=== PATIENT | male | born 1950 | race Caucasian/White ===

== ENCOUNTER 2017-04-14 21:33 | Emergency (ER) | payer MEDICARE, BC, OTHER, SELFPAY ==
[2017-04-14 21:42] VITALS: BP 156/73; PULSE 111; RESP 20; TEMP 36.9; O2SAT 95; BMI 69.0
--- NOTE | 2017-04-14 22:27 | HMH.EDGENADL ---
ED Disposition Clinical Impression: Allergic drug rash due to sulfonamide Disposition: Home, Self-Care Condition on Discharge: Good Additional Instructions: Stop taking Bactrim (trimethoprim/sulfamethoxazole) Do not ever take sulfa drugs or sulfa antibiotics in the future. Follow-up with your primary care physician next week. Tylenol if any fever or joint pains. Prescriptions: hydrOXYzine pamoate [Hydroxyzine Pamoate] 50 mg PO Q6H 5 Days #20 cap predniSONE [Prednisone 20mg Tab] 20 mg PO BID #10 tab - Critical Care Critical Care Time: No Attestation: On , the high probability of a clinically significant, sudden or life threatening deterioration of the following system(s) required my full and direct attention, intervention and personal management. The time I documented below is in addition to time spent performing reported procedures but includes the following listed in this critical care notation. Medical Decision Making Vital Signs: 04/14/17 21:42 Temperature 98.4 F Temperature Source Oral Pulse Rate [Right Radial] 111 H Respiratory Rate 20 Blood Pressure [Right Arm] 156/73 Blood Pressure Mean [Right Arm] 100 Blood Pressure Source [Right Arm] Automatic Cuff Blood Pressure Position [Right Arm] Supine 02 Sat by Pulse Oximetry 95 Oxygen Delivery Method Room Air Orders (Tests/Meds): ED MEDICATIONS Discontinued Medications Generic Name Dose Route Start Last Admin Trade Name Grzegorzq PRN Reason Stop Dose Admin Diphenhydramine HCl 50 mg 04/14/17 21:51 04/14/17 21:53 Benadryl 50mg/1ml Vial IV 04/14/17 21:52 50 mg ONCE ONE Administration Famotidine 20 mg 04/14/17 21:51 04/14/17 21:55 Pepcid 20mg/2ml Vial IV 04/14/17 21:52 20 mg ONCE ONE Administration Hydroxyzine Pamoate 50 mg 04/14/17 22:45 Vistaril 25mg Capsule PO 04/14/17 22:46 ONCE ONE Methylprednisolone Sodium Succinate 125 mg 04/14/17 21:51 04/14/17 21:53 Solu-Medrol 125mg/2ml Vial IV 04/14/17 21:52 125 mg ONCE ONE Administration - Lester Inquiry Pt receiving controlled substance: No General Adult HPI - General Chief complaint: Allergic Reaction Stated complaint: Rash , Possible reaction of medication Mode of Arrival: Ambulatory Limitations: No Limitations Description of Symptoms (Recalled from ER Triage Doc. by RN): hives itching, SOB - History of Present Illness HPI narrative: The patient complains of a pruritic rash which he believes to be due to medication. He was started Bactrim 6 days ago for prostate condition. His rash began 24 hours ago. He has taken Benadryl today. No fever. No trouble breathing. No trouble swallowing. - Related Data Previous Rx's Medication Instructions Recorded hydrOXYzine pamoate [Hydroxyzine 50 mg PO Q6H 5 Days #20 cap 04/14/17 Pamoate] predniSONE [Prednisone 20mg 20 mg PO BID #10 tab 04/14/17 Tab] Allergies Allergy/AdvReac Type Severity Reaction Status Date / Time No Known Allergies Allergy Verified 04/14/17 21:41 [facility] History I have reviewed the patient's past medical history: Yes Medical History: Reports:: Diabetes Mellitus Type 2 Denies:: Cancer, Diabetes Mellitus Type 1, MRSA Laterality Cases: Left: Partial Knee Replacement, Right: Carpal Tunnel Release Amputation: No Fractures: No - *Social History Alcohol Intake: never - Psychiatric History Expresses thoughts of harming self/others: None Suicide Plan Description: No Plan ROS Obtained: Yes All systems reviewed & no additional complaints - Constitutional Constitutional: Denies fever(s) - Respiratory Respiratory: No dyspnea - Integumentary/Breasts Skin/Breast: Reports rash Physical Exam - General General appearance: alert, in no apparent distress - Head Head exam: atraumatic, normocephalic, normal inspection - Eye Eye exam: Present: normal appearance, PERRL, EOMI - ENT ENT exam: Present: normal exam, normal oropharynx, muco
[2017-04-14 23:53] VITALS: BP 134/80; PULSE 102; RESP 12; TEMP 37; O2SAT 96
== END 2017-04-14 23:56 | disposition home or self-care (01) ==
PROVIDERS: Emergency Provider Emergency Medicine; Family Provider Internal Medicine
DX: L27.0 Generalized skin eruption due to drugs and medicaments taken internally (principal); E11.9 Type 2 diabetes mellitus without complications; Z96.652 Presence of left artificial knee joint
CPT/HCPCS: 96374; 96375; 99281

== ENCOUNTER 2020-05-02 09:49 | Emergency (ER) | payer MEDICARE, BC, OTHER, SELFPAY ==
[2020-05-02 10:00] VITALS: BP 123/54; PULSE 65; RESP 20; TEMP 36.7; O2SAT 100; BMI 26.1
--- NOTE | 2020-05-02 10:22 | HMH.EDUTC ---
[facility] [place] Disposition Clinical Impression: Laceration Disposition: Home, Self-Care Condition on Discharge: Good Instructions: DI for Laceration Repair-Skin Glue Additional Instructions: Keep area clean and dry Do not pick off glue allow it to wear off Return if needed Straight to ER if any life threatening symptoms Referrals: Alfie De Paz [Primary Care Provider] - As needed Time of Disposition: 10:42 Medical Decision Making - Lester Inquiry Pt receiving controlled substance: No Lester was queried for this patient: No Vital Signs: 05/02/20 10:00 Temperature 98.0 F Temperature Source Temporal Artery Scan Pulse Rate [Right Brachial] 65 Respiratory Rate 20 Blood Pressure [Left Arm] 123/54 L Blood Pressure Mean [Left Arm] 77 Blood Pressure Source [Left Arm] Automatic Cuff Blood Pressure Position [Left Arm] Sitting 02 Sat by Pulse Oximetry 100 Oxygen Delivery Method Room Air [facility] [place] HPI - General Stated complaint: cut finger on rght hand Time Seen by Provider: 05/02/20 10:22 Mode of Arrival: Ambulatory Source of Information: Patient Limitations: No Limitations Description of Symptoms (Recalled from Triage Doc. by RN): PATIENT C/O LACERATION TO RIGHT INDEX FINGER. STATES HE CUT IT USING A TAPE MEASURE LAST NIGHT. HE IS UP TO DATE ON TDAP HEENT Symptoms (Recalled from RN notes): No Resp Symptoms (Recalled from RN notes): No Skin Symptoms (Recalled from RN notes): Yes MS Symptoms (Recalled from RN notes): No Functional Status (Recalled from RN notes): WNL - History of Present Illness Provider Complaint: Patient states that he was using a tape measure when it slipped and caused small cut to the pad of his index finger on his right hand States that he immediatly cleaned it and put a bandaid on it and got the bleeding stopped but someone told him he may need to get it closed States that last Tetanus was 2 yrs ago - Related Data Home Medications Medication Instructions Recorded Confirmed Atorvastatin Calcium [Atorvastatin 10 mg PO DAILY 04/14/17 10/06/18 10mg Tab] Colchicine 1 tab PO DAILY 04/14/17 10/06/18 Febuxostat [Uloric 40mg Tab] 40 mg PO DAILY 04/14/17 10/06/18 Metformin HCl [Glucophage 500mg 500 mg PO DAILY 04/14/17 10/06/18 Tablet] Omeprazole [Omeprazole 40mg 40 mg PO DAILY 04/14/17 10/06/18 Capsule] atenoloL [Atenolol 50mg Tab] 1 tab PO DAILY 04/14/17 10/06/18 Albuterol Sulfate [Proair Hfa 2 puffs IH NEEDED PRN 10/06/18 10/06/18 90mcg/puff Inh] Carbidopa/Levodopa 1 tab PO TID 10/06/18 10/06/18 [Carbidopa/Levodopa 25/100mg Tablet] Cetirizine HCl [Zyrtec] 10 mg PO DAILY 10/06/18 10/06/18 Fluticasone Propionate [Flovent 2 inh PO BID 10/06/18 10/06/18 Hfa 110mcg Inhaler] Indomethacin 25 mg PO NEEDED PRN 10/06/18 10/06/18 Methenamine Hippurate 500 mg PO BID 10/06/18 10/06/18 Ropinirole HCl 1 mg PO TID 10/06/18 10/06/18 Tamsulosin HCl 0.4 mg PO DAILY 10/06/18 10/06/18 hydroCHLOROthiazide [HCTZ 25mg 25 mg PO DAILY 10/06/18 10/06/18 tab] Previous Rx's Medication Instructions Recorded cephALEXin [Keflex 500mg Cap] 500 mg PO TID 10 Days #30 cap 10/06/18 Allergies Allergy/AdvReac Type Severity Reaction Status Date / Time allopurinol Allergy Verified 12/29/17 13:17 Sulfa (Sulfonamide Allergy Verified 12/29/17 13:17 Antibiotics) - Worker's Comp Is this a Worker's Comp case?: No [facility] History - Hepatitis A Screen Drug use history?: No High risk sexual behaviors?: No History of sexually transmitted infection?: No Currently employed?: No Childcare worker?: No Do you have indoor plumbing?: Yes Do you have electricity?: Yes Attestation statement:: This patient has been screened for Hepatitis A risk factors. I have reviewed the patient's past medical history: Yes Medical History: Reports:: Asthma, Cancer (prostate cancer), Diabetes Mellitus Type 2, Gastroesophageal Reflux Disease(GERD), Hypertension Denies:: Diabetes Mellitus Type
[2020-05-02 10:43] VITALS: BP 123/54; PULSE 65; RESP 20; TEMP 36.7; O2SAT 100
== END 2020-05-02 10:50 | disposition home or self-care (01) ==
PROVIDERS: Emergency Provider Nurse Practitioner; PCP Internal Medicine
DX: S61.210A Laceration without foreign body of right index finger without damage to nail, initial encounter (principal); W26.8XXA Contact with other sharp object(s), not elsewhere classified, initial encounter; Y92.019 Unspecified place in single-family (private) house as the place of occurrence of the external cause
CPT/HCPCS: 12001; G0463; 99202

== ENCOUNTER 2020-05-30 19:48 | Emergency (ER) | payer MEDICARE, BC, OTHER, SELFPAY ==
[2020-05-30 20:10] VITALS: BP 152/76; PULSE 76; RESP 20; TEMP 36.7; O2SAT 97; BMI 28.2
--- NOTE | 2020-05-30 20:33 | CT_ITS ---
PROCEDURE: CT HEAD/BRAIN WO CON CLINICAL INDICATION: altered mental status Altered mental status, altered level of consciousness, confusion, disorientation COMPARISON: No exams were available for comparison TECHNIQUE: Axial images obtained. All CT scans at the facility use one or more dose reduction, viz: automated exposure control, ma/kV adjustment per patient size (including targeted exams where dose is matched to indication, i.e. head), or iterative reconstruction technique. FINDINGS: No midline shift, mass effect, intracranial hemorrhage, hydrocephalus, or extra-axial fluid collection is evident. Nonspecific decreased attenuation periventricular white matter which may be related to is chronic ischemic gliotic changes from microvascular disease. The calvarium has an unremarkable appearance. No mastoid effusion. Left maxillary retention cyst. IMPRESSION: No acute intracranial finding Dictated by: Prabhjot Landry MD 05/31/2020 08:59 Prabhjot Landry MD in [place] 05/31/2020 08:59
--- NOTE | 2020-05-30 20:52 | HMH.EDAMS ---
ED Disposition Clinical Impression: TIA (transient ischemic attack) Disposition: Home, Self-Care Condition on Discharge: Good Instructions: DI for Transient Ischemic Attack Additional Instructions: return if needed and call pcp for follow up Referrals: Alfie De Paz [Primary Care Provider] - - Critical Care Critical Care Time: No Attestation: On 05/30/20, the high probability of a clinically significant, sudden or life threatening deterioration of the following system(s) required my full and direct attention, intervention and personal management. The time I documented below is in addition to time spent performing reported procedures but includes the following listed in this critical care notation. Medical Decision Making - Medical Records Medical records reviewed: Yes: I reviewed the patient's medical records. - Lester Inquiry Pt receiving controlled substance: No Vital Signs: 05/30/20 20:10 Temperature 98.0 F Temperature Source Oral Pulse Rate [Right] 76 Respiratory Rate 20 Blood Pressure [Right Arm] 152/76 H Blood Pressure Mean [Right Arm] 101 Blood Pressure Source [Right Arm] Automatic Cuff 02 Sat by Pulse Oximetry 97 Oxygen Delivery Method Room Air - Lab Data Lab results reviewed: Yes: I reviewed the patient's lab results. Lab Results 05/30/20 20:50: WBC 5.3, RBC 4.49 L, Hgb 13.4 L, Hct 42.8, MCV 95.3 H, MCH 29.9, MCHC 31.4 L, RDW 14.3, Plt Count 187, MPV 8.3, Neut % (Auto) 57.2, Lymph % (Auto) 33.5, [place] % (Auto) 6.3, Eos % (Auto) 2.1, Baso % (Auto) 0.8, Neut # (Auto) 3.0, Lymph # (Auto) 1.8, [place] # (Auto) 0.3, Eos # (Auto) 0.1, Baso # (Auto) 0.0, ESR 3 05/30/20 20:50: Sodium 139, Potassium 3.7, Chloride 108 H, Carbon Dioxide 27, Anion Gap 7.7, BUN 17, Creatinine 0.80, Estimated Creat Clear 76, Estimated GFR 95, Est GFR ( Amer) 115, Glucose 93, Calcium 8.8, Total Bilirubin 1.4 H, AST 33, ALT 21, Alkaline Phosphatase 69, C-Reactive Protein 0.4, Total Protein 6.2 L, Albumin 3.9, Globulin 2.3, Albumin/Globulin Ratio 1.7 05/30/20 20:50: Procalcitonin 0.052 05/30/20 20:50: Troponin I < 0.01 05/30/20 22:26: Urine Color Yellow, Urine Appearance Clear, Urine pH 5.5, Ur Specific [place] >= 1.030, Urine Protein Negative, Urine Glucose (UA) Negative, Urine Ketones Negative, Urine Blood Negative, Urine Nitrate Negative, Urine Bilirubin Negative, Urine Urobilinogen 1.0, Ur Leukocyte Esterase Negative, Urine RBC None, Urine WBC None, Ur Squamous Epith Cells None, Urine Bacteria None Result diagrams: 05/30/20 20:50 05/30/20 20:50 Orders (Tests/Meds): ED MEDICATIONS Generic Name Dose Route Start Last Admin Trade Name Freq PRN Reason Stop Dose Admin Sodium Chloride 1,000 mls @ 999 mls/hr 05/30/20 22:00 05/30/20 21:48 Sod Chlor 0.9% 1000ml Bag IV 05/30/20 23:00 999 mls/hr .Q1H1M MEG Administration ORDERS Category Date Time Status CT head/brain wo con Stat Cat Scan 05/30/20 20:33 Taken Troponin I Q3H Lab 05/31/20 00:15 Ordered Troponin I Q3H Lab 05/31/20 03:15 Ordered - CT Data CT Scan: Head Time Received: 23:[address] Reviewed: Yes: I have viewed the radiologist's interpretation Preliminary Findings: Normal/NAD Medical Decision Narrative: possible tia as pt is back to baseline - asked pt to call pcp and neurologist and consider asa 81 mg Altered Mental Status HPI - General Chief Complaint: Altered Mental Status Stated Complaint: SHAKING BAD. , CONFUSSION Time Seen by Provider: 05/30/20 20:53 Mode of Arrival: Family Vehicle Source of Information: Patient, Relative, Medical Record Limitations: No Limitations Description of Symptoms (Recalled from ER Triage Doc. by RN): Pt is A&Ox3 and has answered questioned correctly. 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 Pt also c/o shakiness that has been going on for 2yrs. He states he has been dx with passive tremors but the shakes seems worse to him. He also c/o of drooling at times
[2020-05-30 21:04] LABS: Basophils % 0.8 % (0.1-2.0); Eosinophils # 0.1 K/mm3 (0.0-0.4); Eosinophils % 2.1 % (0.1-12.0); Hematocrit 42.8 % (42.0-52.0); Hemoglobin 13.4 g/dL (14.1-18.0); Lymphocytes # 1.8 K/mm3 (0.7-4.5); Lymphocytes % 33.5 % (10-50); Mean Corpuscular HGB Conc 31.4 g/dL (31.8-35.4); Mean Corpuscular Hemoglobin 29.9 pg (27.0-31.2); Mean Corpuscular Volume 95.3 fl (80-94); Mean Platelet Volume 8.3 fl (7.4-10.4); Monocytes # 0.3 K/mm3 (0.1-1.0); Monocytes % 6.3 % (1.7-9.3); Neutrophils % 57.2 % (37.0-80.0); Platelet Count 187 K/mm3 (142-424); Red Blood Count 4.49 M/mm3 (4.60-6.20); Red Cell Distribution Width 14.3 % (11.5-17.5); White Blood Count 5.3 K/mm3 (4.8-10.8)
[2020-05-30 21:06] LABS: Chloride 108 mmol/L (98-107); Potassium 3.7 mmoL/L (3.5-5.1); Sodium 139 mmol/L (136-145)
[2020-05-30 21:09] LABS: Albumin Level 3.9 g/dl (3.5-5.0); Albumin/Globulin Ratio 1.7 (1.1-1.8); Anion Gap 7.7 mEq/L (5-15); Carbon Dioxide 27 mmol/L (22.0-30.0); Globulin 2.3 g/dL (1.3-3.2); Total Protein,Serum 6.2 g/dl (6.3-8.2)
[2020-05-30 21:15] LABS: C-Reactive Protein 0.4 mg/L (0-4)
[2020-05-30 21:19] LABS: Alanine Aminotransferase 21 U/L (12-78); Alkaline Phosphatase 69 U/L (38-126); Aspartate Amino Transferase 33 U/L (17-59); Bilirubin,Total 1.4 mg/dl (0.2-1.3); Blood Urea Nitrogen 17 mg/dl (9-20); Calcium 8.8 mg/dl (8.4-10.2); Creatinine Clearance Estimated 76 mL/min (50-200); Estimated Glomerular Filt Rate 95 ml/min (>60); GFR (African American) 115 ML/MIN (>60); Glucose 93 mg/dl (74-100)
[2020-05-30 21:32] LABS: Erythrocyte Sedimentation Rate 3 mm/hr (0-20)
[2020-05-30 21:45] LABS: Procalcitonin 0.052 ng/mL (0.0-2.0)
[2020-05-30 22:08] LABS: Troponin I < 0.01 ng/ml (0.00-0.034)
[2020-05-30 22:36] LABS: Microscopic, Urine URINE MICROSCOPIC (MICROSCOPIC)
[2020-05-30 22:39] LABS: Appearance,Urine CLEAR (Clear); Blood, Urine Negative (Negative); Color,Urine YELLOW (Yellow); Glucose,Urine (UA) Negative (Negative); Ketones,Urine Negative (Negative); Leukocyte Esterase,Urine Negative (Negative); Nitrate,Urine Negative (Negative); PH,Urine 5.5 (5.0-8.5); Protein,Urine Negative (Negative); Specific Gravity, Urine >= 1.030 (1.005-1.030)
[2020-05-30 22:58] LABS: Bilirubin,Urine Negative (Negative)
[2020-05-30 23:09] VITALS: BP 150/82; PULSE 71; RESP 18; TEMP 36.9; O2SAT 99
== END 2020-05-30 23:20 | disposition home or self-care (01) ==
PROVIDERS: Emergency Provider Emergency Medicine; PCP Internal Medicine
DX: G45.8 Other transient cerebral ischemic attacks and related syndromes (principal); I10 Essential (primary) hypertension; K21.9 Gastro-esophageal reflux disease without esophagitis; E11.9 Type 2 diabetes mellitus without complications; Z85.46 Personal history of malignant neoplasm of prostate; Z79.899 Other long term (current) drug therapy
CPT/HCPCS: 70450; 80053; 81001; 84145; 84484; 85025; 85651; 86140; 96365; 99283

== ENCOUNTER 2020-10-27 19:26 | Emergency (ER) | payer MEDICARE, BC, OTHER, SELFPAY ==
[2020-10-27] VITALS (8 sets, daily range): BP systolic 108–152; BP diastolic 61–111; PULSE 76–85; RESP 22; TEMP 37.1; O2SAT 94–100; BMI 26.6; BMI 22.8
--- NOTE | 2020-10-27 19:38 | XR_ITS ---
PROCEDURE INFORMATION: Exam: XR Chest Exam date and time: 10/27/2020 7:38 PM Age: 70 years old Clinical indication: Other: Possible CVA per er staff TECHNIQUE: Imaging protocol: XR of the chest. Views: 1 view. COMPARISON: No relevant prior studies available. FINDINGS: Lungs: The lungs are hyperinflated, consistent with underlying small airways disease. Pleural spaces: Unremarkable. No pleural effusion. No pneumothorax. Heart/Mediastinum: Unremarkable. No cardiomegaly. Bones/joints: Unremarkable. IMPRESSION: The lungs are hyperinflated, consistent with underlying small airways disease.
--- NOTE | 2020-10-27 19:38 | CT_ITS ---
PROCEDURE INFORMATION: Exam: CT Head Without Contrast Exam date and time: 10/27/2020 7:38 PM Age: 70 years old Clinical indication: Speech disturbance; Additional info: Word salad, unsteady gait occurred between TECHNIQUE: Imaging protocol: Computed tomography of the head without contrast. 3D rendering (Not supervised by radiologist): MIP and/or 3D reconstructed images were created by the technologist. Radiation optimization: All CT scans at this facility use at least one of these dose optimization techniques: automated exposure control; mA and/or kV adjustment per patient size (includes targeted exams where dose is matched to clinical indication); or iterative reconstruction. Other technique: STROKE PROTOCOL was implemented. COMPARISON: CT HEAD/BRAIN WO CON 05/30/2020 9:49 PM FINDINGS: Brain: No hemorrhage, mass effect or midline shift. Age-related atrophy and chronic white matter ischemic changes, with no evidence of an acute intracranial abnormality. Cerebral ventricles: No ventriculomegaly. Paranasal sinuses: Mucous retention cyst left maxillary sinus. Mastoid air cells: Visualized mastoid air cells are well aerated. Bones/joints: No acute fracture. Soft tissues: No acute changes IMPRESSION: 1. No hemorrhage, mass effect or midline shift. 2. Age-related atrophy and chronic white matter ischemic changes, with no evidence of an acute intracranial abnormality. ASSESSMENT: ASPECTS ([place] Stroke Program Early CT Score) is 10.
--- NOTE | 2020-10-27 19:56 | HMH.EDAMS ---
ED Disposition Clinical Impression: AMS (altered mental status) Qualifiers: Altered mental status type: unspecified Qualified Code(s): R41.82 - Altered mental status, unspecified Adverse drug reaction Qualifiers: Encounter type: initial encounter Qualified Code(s): T50.905A - Adverse effect of unspecified drugs, medicaments and biological substances, initial encounter Disposition: Xfer Short-Term Hosp Condition on Discharge: Serious Referrals: Alfie De Paz [Primary Care Provider] - - Critical Care Critical Care Time: No Attestation: On 10/27/20, the high probability of a clinically significant, sudden or life threatening deterioration of the following system(s) required my full and direct attention, intervention and personal management. The time I documented below is in addition to time spent performing reported procedures but includes the following listed in this critical care notation. Medical Decision Making - Medical Records Medical records reviewed: Yes: I reviewed the patient's medical records. - Lester Inquiry Pt receiving controlled substance: No Vital Signs: 10/27/20 19:26 10/27/20 20:33 10/27/20 21:15 Temperature 98.7 F Temperature Source Oral Pulse Rate 83 76 Pulse Rate [Right] 83 Respiratory Rate 22 Blood Pressure 152/111 H 108/89 L Blood Pressure [Right Arm] 126/66 Blood Pressure Mean 123 95 Blood Pressure Mean [Right Arm] 86 02 Sat by Pulse Oximetry 99 98 99 10/27/20 21:31 10/27/20 22:00 10/27/20 22:18 Temperature Temperature Source Pulse Rate 79 81 85 Pulse Rate [Right] Respiratory Rate Blood Pressure 112/61 132/81 122/71 Blood Pressure [Right Arm] Blood Pressure Mean 82 90 83 Blood Pressure Mean [Right Arm] 02 Sat by Pulse Oximetry 99 100 97 10/27/20 22:31 10/27/20 23:30 10/28/20 00:21 Temperature Temperature Source Pulse Rate 85 77 88 Pulse Rate [Right] Respiratory Rate Blood Pressure 121/64 109/64 L 133/89 Blood Pressure [Right Arm] Blood Pressure Mean 84 75 99 Blood Pressure Mean [Right Arm] 02 Sat by Pulse Oximetry 94 L 98 9 L - Lab Data Lab results reviewed: Yes: I reviewed the patient's lab results. Lab Results 10/27/20 19:44: WBC 7.2, RBC 4.85, Hgb 15.0, Hct 45.7, MCV 94.1 H, MCH 31.0, MCHC 32.9, RDW 14.3, Plt Count 230, MPV 8.8, Neut % (Auto) 50.9, Lymph % (Auto) 38.9, [place] % (Auto) 7.6, Eos % (Auto) 1.6, Baso % (Auto) 1.1, Neut # (Auto) 3.6, Lymph # (Auto) 2.8, [place] # (Auto) 0.5, Eos # (Auto) 0.1, Baso # (Auto) 0.1 10/27/20 19:44: Sodium 137, Potassium 3.3 L, Chloride 98, Carbon Dioxide 28, Anion Gap 14.3, BUN 20, Creatinine 0.70, Estimated Creat Clear 66, Estimated GFR 111, Est GFR ( Amer) 134, Glucose 101 H, Calcium 9.8, Total Bilirubin 2.7 H, AST 35, ALT 7 L, Alkaline Phosphatase 94, Troponin I < 0.01, Total Protein 7.3, Albumin 4.5, Globulin 2.8, Albumin/Globulin Ratio 1.6, TSH 0.54, Thyroxine (T4) 9.6 10/27/20 19:44: Salicylates < 1.0 L, Acetaminophen < 10 L 10/27/20 20:04: POC Glucose 186 H 10/27/20 21:10: Urine Color Brown, Urine Appearance Sl cloudy, Urine pH 6.0, Ur Specific [place] 1.025, Urine Protein Trace, Urine Glucose (UA) Negative, Urine Ketones 1+, Urine Blood Negative, Urine Nitrate Negative, Urine Bilirubin Negative, Urine Urobilinogen 1.0, Ur Leukocyte Esterase Negative, Urine RBC None, Urine WBC 3-5, Ur Squamous Epith Cells 3-5, Urine Bacteria None 10/27/20 21:10: Urine Opiates Screen Negative, Urine Methadone Screen Negative, Ur Barbituates Screen Negative, Ur Phencyclidine Scrn Negative, Ur Amphetamines Screen Negative, U Benzodiazepines Scrn Negative, Urine Cocaine Screen Negative, U Marijuana (THC) Screen Negative 10/27/20 22:15: Ammonia < 9 L 10/27/20 23:00: Troponin I < 0.01 10/27/20 23:55: SARS-CoV-2 (PCR) Not detected, Influenza A Untype (PCR) Not detected, Influenza Type B (PCR) Not detected 10/28/20 01:42: Troponin I < 0.01 Result diagrams: 10/27/20 19:44 10/27/20 1
[2020-10-27 20:07] LABS: Alanine Aminotransferase 7 U/L (12-78); Albumin Level 4.5 g/dl (3.5-5.0); Albumin/Globulin Ratio 1.6 (1.1-1.8); Alkaline Phosphatase 94 U/L (38-126); Anion Gap 14.3 mEq/L (5-15); Aspartate Amino Transferase 35 U/L (17-59); Bilirubin,Total 2.7 mg/dl (0.2-1.3); Blood Urea Nitrogen 20 mg/dl (9-20); Calcium 9.8 mg/dl (8.4-10.2); Carbon Dioxide 28 mmol/L (22.0-30.0); Chloride 98 mmol/L (98-107); Creatinine Clearance Estimated 66 mL/min (50-200); Estimated Glomerular Filt Rate 111 ml/min (>60); GFR (African American) 134 ML/MIN (>60); Globulin 2.8 g/dL (1.3-3.2); Glucose 101 mg/dl (74-100); Potassium 3.3 mmoL/L (3.5-5.1); Sodium 137 mmol/L (136-145); Total Protein,Serum 7.3 g/dl (6.3-8.2)
[2020-10-27 20:19] LABS: POC Glucose,Bedside 186 (70-110)
[2020-10-27 20:20] LABS: Troponin I < 0.01 ng/ml (0.00-0.034)
[2020-10-27 20:21] LABS: Basophils # 0.1 K/mm3 (0-0.2); Basophils % 1.1 % (0.1-2.0); Eosinophils # 0.1 K/mm3 (0.0-0.4); Eosinophils % 1.6 % (0.1-12.0); Hematocrit 45.7 % (42.0-52.0); Lymphocytes # 2.8 K/mm3 (0.7-4.5); Lymphocytes % 38.9 % (10-50); Mean Corpuscular HGB Conc 32.9 g/dL (31.8-35.4); Mean Corpuscular Volume 94.1 fl (80-94); Mean Platelet Volume 8.8 fl (7.4-10.4); Monocytes # 0.5 K/mm3 (0.1-1.0); Monocytes % 7.6 % (1.7-9.3); Neutrophils # 3.6 K/mm3 (1.8-7.8); Neutrophils % 50.9 % (37.0-80.0); Platelet Count 230 K/mm3 (142-424); Red Blood Count 4.85 M/mm3 (4.60-6.20); Red Cell Distribution Width 14.3 % (11.5-17.5); White Blood Count 7.2 K/mm3 (4.8-10.8)
[2020-10-27 20:24] LABS: T4 (Thyroxine) 9.6 ug/dl (5.53-11.0)
--- NOTE | 2020-10-27 20:30 | PC.NURSE ---
update given to and friend. 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 informed the registration staff to remind of no visitor policy
[2020-10-27 20:38] LABS: Thyroid Stimulating Hormone 0.54 uIU/mL (0.465-4.68)
[2020-10-27 21:30] LABS: Microscopic, Urine URINE MICROSCOPIC (MICROSCOPIC)
--- NOTE | 2020-10-27 21:30 | PC.NURSE ---
pt resting at this time. no acute distress. vss. emv 14. able to articulate well at this time.
[2020-10-27 21:33] LABS: Appearance,Urine SL CLOUDY (Clear); Bilirubin,Urine Negative (Negative); Blood, Urine Negative (Negative); Color,Urine BROWN (Yellow); Glucose,Urine (UA) Negative (Negative); Ketones,Urine 1+ (Negative); Leukocyte Esterase,Urine Negative (Negative); Nitrate,Urine Negative (Negative); Protein,Urine TRACE (Negative); Specific Gravity, Urine 1.025 (1.005-1.030)
[2020-10-27 21:43] LABS: Acetaminophen < 10 ug/ml (10-30); Salicylate < 1.0 mg/dL (2.0-20.0)
[2020-10-27 21:45] LABS: Opiate Screen,Urine Negative ng/ml (<300)
[2020-10-27 21:46] LABS: Phencyclidine Screen,Urine Negative ng/ml (<25)
[2020-10-27 21:49] LABS: Amphetamine/Metha Screen,Urine Negative ng/ml (<1000); Barbiturates Screen,Urine Negative ng/ml (<200)
[2020-10-27 21:50] LABS: Benzodiazepines Screen,Urine Negative ng/ml (<200); Cannabinoid Screen,Urine Negative ng/ml (<50)
[2020-10-27 21:51] LABS: Cocaine Screen,Urine Negative ng/ml (<300)
[2020-10-27 21:52] LABS: Methadone Screen,Urine Negative ng/ml (<300)
[2020-10-27 22:38] LABS: Ammonia < 9 umol/L (9-30)
--- NOTE | 2020-10-27 22:53 | PC.NURSE ---
family updated on current status. pt headed to take someone home and will return.
--- NOTE | 2020-10-27 23:10 | PC.NURSE ---
consulting and discussing with dr arias for assist in dx.
--- NOTE | 2020-10-27 23:20 | CT_ITS ---
PROCEDURE INFORMATION: Exam: CT Angiography Neck With Contrast Exam date and time: 10/27/2020 11:20 PM Age: 70 years old Clinical indication: Other: AMS TECHNIQUE: Imaging protocol: Computed tomography angiography of the neck with contrast. 3D rendering (Not supervised by radiologist): MIP and/or 3D reconstructed images were created by the technologist. Radiation optimization: All CT scans at this facility use at least one of these dose optimization techniques: automated exposure control; mA and/or kV adjustment per patient size (includes targeted exams where dose is matched to clinical indication); or iterative reconstruction. Contrast material: ISO 370; Contrast volume: 100 ml; Contrast route: INTRAVENOUS (IV); COMPARISON: CT HEAD/BRAIN WO CON 10/27/2020 7:40 PM FINDINGS: Right common carotid artery: No stenosis. No dissection or occlusion. Right internal carotid artery: No stenosis of the extracranial segment. No dissection or occlusion. Right external carotid artery: No occlusion or stenosis of the origin. Left common carotid artery: No stenosis. No dissection or occlusion. Left internal carotid artery: No stenosis of the extracranial segment. No dissection or occlusion. Left external carotid artery: No occlusion or stenosis of the origin. Right vertebral artery: No stenosis. No dissection or occlusion. Left vertebral artery: No stenosis. No dissection or occlusion. Soft tissues: Normal. No significant soft tissue swelling. Bones/joints: [id number] multilevel degenerative changes of the spine. IMPRESSION: 1. No stenosis, dissection or occlusion. 2. Degenerative changes of the spine. REFERENCES: NASCET CRITERIA. The degree of internal carotid artery stenosis is based on NASCET criteria. Normal is no stenosis. Mild is less than 50% stenosis. Moderate is 50-69% stenosis. Severe is 70% to 99% stenosis. Total occlusion is no detectable patent lumen.
--- NOTE | 2020-10-27 23:20 | CT_ITS ---
PROCEDURE INFORMATION: Exam: CT Angiography Head With Contrast, Arteriography Exam date and time: 10/27/2020 11:20 PM Age: 70 years old Clinical indication: Other: AMS TECHNIQUE: Imaging protocol: Computed tomography angiography of the head with contrast. Exam focused on the arteries. 3D rendering (Not supervised by radiologist): MIP and/or 3D reconstructed images were created by the technologist. Radiation optimization: All CT scans at this facility use at least one of these dose optimization techniques: automated exposure control; mA and/or kV adjustment per patient size (includes targeted exams where dose is matched to clinical indication); or iterative reconstruction. Contrast material: ISO 370; Contrast volume: 100 ml; Contrast route: INTRAVENOUS (IV); COMPARISON: CT HEAD/BRAIN WO CON 10/27/2020 7:40 PM FINDINGS: ANTERIOR CIRCULATION: Right internal carotid artery: Unremarkable. Intracranial segment is patent with no significant stenosis. No aneurysm. Right middle cerebral artery: Unremarkable. No occlusion or significant stenosis. No aneurysm. Right anterior cerebral artery: Unremarkable. No occlusion or significant stenosis. No aneurysm. Left internal carotid artery: Unremarkable. Intracranial segment is patent with no significant stenosis. No aneurysm. Left middle cerebral artery: Unremarkable. No occlusion or significant stenosis. No aneurysm. Left anterior cerebral artery: Unremarkable. No occlusion or significant stenosis. No aneurysm. POSTERIOR CIRCULATION: Right vertebral artery: Unremarkable. No occlusion or significant stenosis. No aneurysm. Left vertebral artery: Unremarkable. No occlusion or significant stenosis. No aneurysm. Basilar artery: Unremarkable. No occlusion or significant stenosis. No aneurysm. Right posterior cerebral artery: Unremarkable. No occlusion or significant stenosis. No aneurysm. Left posterior cerebral artery: Unremarkable. No occlusion or significant stenosis. No aneurysm. Brain: No definite mass, mass effect, or midline shift. [id number] atrophy. Cerebral ventricles: No ventriculomegaly. Bones/joints: Unremarkable. No acute fracture. Soft tissues: Unremarkable. Paranasal sinuses: Large mucous retention cyst or polyp in the left maxillary sinus. IMPRESSION: No large vessel stenosis or occlusion.
[2020-10-27 23:47] LABS: Troponin I < 0.01 ng/ml (0.00-0.034)
[2020-10-28 00:07] LABS: Coronavirus 19, PCR Not Detected (NotDetected); Influenza A, PCR Not Detected (NotDetected); Influenza B, PCR Not Detected (NotDetected)
[2020-10-28 00:21] VITALS: BP 133/89; PULSE 88; O2SAT 99
--- NOTE | 2020-10-28 01:41 | PC.NURSE ---
call placed to dr fisher
--- NOTE | 2020-10-28 01:59 | PC.NURSE ---
on the phone with Dr. Vinson
--- NOTE | 2020-10-28 02:00 | PC.NURSE ---
[facility] hospitalist paged to discuss possible transfer to their facility
--- NOTE | 2020-10-28 02:11 | PC.NURSE ---
called poison control, spoke with derek; discussed rytary 110mg dose 3x daily. informed her last dose was at 3:30 today.suggested attempting to decrease the acetylcholine in his system by giving benadryl 25-50 IV, then oral for 3 days. additionally mentions giving cogentin and valium to assist. half life of the metabolite of the drug is 15 hrs per her report.
[2020-10-28 02:12] LABS: Troponin I < 0.01 ng/ml (0.00-0.034)
--- NOTE | 2020-10-28 02:23 | PC.NURSE ---
on phone with Dr. Acharya hospitalist @ [facility]
--- NOTE | 2020-10-28 02:31 | PC.NURSE ---
no beds available at [facility] at this time.
--- NOTE | 2020-10-28 03:14 | PC.NURSE ---
Call from [facility], no beds are available but his information is being transferred to [facility] and they will call when a bed becomes available.
--- NOTE | 2020-10-28 03:15 | PC.NURSE ---
Face sheet faxed to [phone]
--- NOTE | 2020-10-28 04:47 | PC.NURSE ---
Call from [facility], room is available patient will be transferred to [address] [facility] [address], Mercedes Vogt RN calling report
--- NOTE | 2020-10-28 04:50 | PC.NURSE ---
[facility] contacted that patient is ready for transfer, spoke with Sheila Malcolm
[2020-10-28 05:04] VITALS: BP 133/83; PULSE 88; RESP 16; TEMP 37.1; O2SAT 99
--- NOTE | 2020-10-28 05:39 | PC.NURSE ---
pt up to br with one person standby assist. reminded to pull shoulders back when walking as he wants to shuffle and run simultaneously
== END 2020-10-28 06:42 | disposition short-term general hospital (02) ==
PROVIDERS: Emergency Provider Emergency Medicine; PCP Internal Medicine
DX: R41.82 Altered mental status, unspecified (principal); T42.8X5A Adverse effect of antiparkinsonism drugs and other central muscle-tone depressants, initial encounter; Y92.009 Unspecified place in unspecified non-institutional (private) residence as the place of occurrence of the external cause; E11.9 Type 2 diabetes mellitus without complications; I10 Essential (primary) hypertension; K21.9 Gastro-esophageal reflux disease without esophagitis; Z88.2 Allergy status to sulfonamides; G20 Parkinson's disease; Z11.52 Encounter for screening for COVID-19
CPT/HCPCS: 36415; 70450; 70496; 70498; 71045; 80053; 80305; 80329; 81001; 82140; 82962; 84436; 84443; 84484; 85025; 93005; 96365; 96375; 99284; Q9967; U0003